=== PATIENT | male | born 1975 | race Caucasian/White ===

== ENCOUNTER 2025-01-15 15:02 | Outpatient (CLI) | payer OTHER, BC, SELFPAY ==
--- NOTE | ~2025-01-15 | MR_ITS ---
MRI of the lumbar spine Clinical History: Radiculopathy Technique: Axial T2-weighted images, and sagittal T1-weighted, T2-weighted, and T2 fat-sat images wer e acquired. Findings: There is no fracture or subluxation of the lumbar spine. Vertebral bodies maintain normal h eight and alignment. No bone marrow signal abnormality seen. At L1-L2, L2-L3, L3-L4, intervertebral discs maintain normal signal and position. No significant disc bulge or herniation at these levels. There is mild to moderate facet arthropathy results. No spinal canal stenosis at these levels. Neural foramina are preserved at L1-L2 and L2-L3. There is mild bilat eral neural foraminal narrowing at L3-L4. At L4-L5, there is mild degenerative disc narrowing with mild disc bulge and mild to moderate facet a rthropathy. No central canal stenosis. There is moderate to advanced left neural foraminal narrowing, and moderate right neural foraminal narrowing. At L5-S1, there is disc desiccation with minimal disc bulge and mild facet arthropathy. No central ca nal stenosis. There is mild bilateral neural foraminal narrowing. Paravertebral soft tissues are unremarkable. Impression: Mild degenerative spondylosis overall, worst at L4-L5. Reviewed, dictated and finalized at location . Impression: Mild degenerative spondylosis overall, worst at L4-L5.
== END 2025-01-15 15:03 | disposition home or self-care (01) ==
LOC: MICIMG 15:04
PROVIDERS: PCP Orthopaedic Surgery; Visit Provider Orthopaedic Surgery
DX: M47.816 Spondylosis without myelopathy or radiculopathy, lumbar region (principal)
CPT/HCPCS: 72148